=== PATIENT | female | born 1990 | race Caucasian/White ===

== ENCOUNTER 2019-04-24 20:09 | Emergency (ER) | payer OTHER ==
[~2019-04-24] VITALS: Ht 170.2 cm; Wt 136.1 kg
[~2019-04-24 20:09] MED LIST: ABILIFY; ACET500 PO; ARIP10 PO; CIPR500 PO; CRUTCH4 USE; Cipro500 MG PO; FLUC200 PO; FLUT.05NI; Flagyl500 MG PO; METF500C PO; METF850 PO; METR500 PO; METR70GEL VAG; MULVITMINE PO; NITR100CA PO; Norco 5-325 Ta1 EACH PO; ORTHO TRYCYCLINE; PHENA200 PO; PNV PRENATAL P1 EACH PO; PROM25 PO; SERT100; SERT100 PO; SERT50 PO; SULTRIDS PO; TRAZ50; TRAZ50 PO; Verotin-Gr Cap1 EACH; Zofran8 MG PO
[2019-04-24] MEDS ORDERED: CYCL10 PO (21:06)
== END 2019-04-24 21:10 | disposition home or self-care (01) ==
LOC: ER 20:09
DX: M23.92 Unspecified internal derangement of left knee (principal); Z88.1 Allergy status to other antibiotic agents; Z79.84 Long term (current) use of oral hypoglycemic drugs; F17.210 Nicotine dependence, cigarettes, uncomplicated
CPT/HCPCS: 73562-LT; 99283-25

== ENCOUNTER 2019-07-22 16:24 | Emergency (ER) | payer OTHER ==
[~2019-07-22] VITALS: Ht 170.2 cm; Wt 136.1 kg
[~2019-07-22 16:24] MED LIST changes: +CYCL10 PO
[2019-07-22] MEDS ORDERED: LATUDA60 MG PO ×2 (16:30→16:52)
[2019-07-22] MEDS ORDERED: METF500C PO (16:52)
== END 2019-07-22 17:01 | disposition home or self-care (01) ==
LOC: ER 16:24
DX: E11.9 Type 2 diabetes mellitus without complications (principal); Z88.8 Allergy status to other drugs, medicaments and biological substances; Z88.1 Allergy status to other antibiotic agents; Z79.899 Other long term (current) drug therapy; Z79.84 Long term (current) use of oral hypoglycemic drugs; F17.210 Nicotine dependence, cigarettes, uncomplicated
CPT/HCPCS: 99281

== ENCOUNTER 2019-08-03 17:59 | Emergency (ER) | payer OTHER ==
[~2019-08-03] VITALS: Ht 170.2 cm; Wt 136.1 kg
[~2019-08-03 17:59] MED LIST changes: +LATUDA60 MG PO
[2019-08-03] MEDS ORDERED: PRENATAL TABLE1 EAC2 PO (19:42)
== END 2019-08-03 20:26 | disposition home or self-care (01) ==
LOC: ER 17:59
DX: O26.891 Other specified pregnancy related conditions, first trimester (principal); R10.9 Unspecified abdominal pain; O99.331 Smoking (tobacco) complicating pregnancy, first trimester; F17.210 Nicotine dependence, cigarettes, uncomplicated; Z3A.01 Less than 8 weeks gestation of pregnancy
CPT/HCPCS: 36415; 84702; 99283

== ENCOUNTER → 2019-10-29 | Outpatient (CLI) | payer OTHER ==
[~2019-10-29] MED LIST changes: +PRENATAL TABLE1 EAC2 PO
[2019-10-30 14:08] LABS: HPV 16 Negative (Negative); HPV 18 Negative (Negative); HPV OTHER HR TYPES Negative (Negative)
== END | disposition home or self-care (01) ==
LOC: LAB SHORT 15:30 → LAB 15:30
PROVIDERS: Obstetrics & Gynecology
DX: Z12.4 Encounter for screening for malignant neoplasm of cervix (principal)
CPT/HCPCS: 87624; G0123

== ENCOUNTER 2020-03-28 11:59 | Emergency (ER) | payer OTHER ==
[~2020-03-28] VITALS: Ht 170.2 cm; Wt 142.9 kg
[2020-03-28 12:35] LABS: Source, Urine Clean Catch
[2020-03-28 12:41] LABS: Appearance, Urine Clear (Clear); Bilirubin, Urine Neg (Neg); Blood, Urine Neg (Neg); Color, Urine Yellow (P-Yellow); Glucose Qualitative, Urine Neg (Neg); Ketones, Urine Neg (Neg); Leukocyte Esterase, Urine Neg (Neg); Nitrite, Urine Neg (Neg); Protein, Urine Neg (Neg); Specific Gravity, Urine 1.005 (1.003-1.022); Urobilinogen, Urine NORM (Normal)
== END 2020-03-28 15:14 | disposition home or self-care (01) ==
LOC: ER 11:59
PROVIDERS: Emergency Medicine
DX: O41.02X0 Oligohydramnios, second trimester, not applicable or unspecified (principal); J45.909 Unspecified asthma, uncomplicated; F41.0 Panic disorder [episodic paroxysmal anxiety]; F17.210 Nicotine dependence, cigarettes, uncomplicated; Z88.1 Allergy status to other antibiotic agents; Z79.899 Other long term (current) drug therapy; Z79.84 Long term (current) use of oral hypoglycemic drugs; Z3A.18 18 weeks gestation of pregnancy
CPT/HCPCS: 76815; 81003; 99284-25

== ENCOUNTER → 2020-07-27 | Outpatient (CLI) | payer OTHER | END | disposition home or self-care (01) | LOC: LAB SHORT 15:51 → LAB 15:51 | DX: O26.93 Pregnancy related conditions, unspecified, third trimester (principal); Z3A.35 35 weeks gestation of pregnancy | CPT/HCPCS: 87081; 87150 ==

== ENCOUNTER 2020-08-24 06:01 | Inpatient (IN) | payer OTHER ==
[~2020-08-24] VITALS: Ht 170.2 cm; Wt 162.7 kg
[2020-08-24 08:45] LABS: BASOPHILS ABSOLUTE AUTO 0.03 K/mm3 (0.00-0.23); BASOPHILS PERCENT AUTO 0 % (0-2); EOSINOPHILS ABSOLUTE AUTO 0.08 K/mm3 (0.00-0.68); EOSINOPHILS PERCENT AUTO 1 % (0-6); Hemoglobin 11.1 g/dL (11.5-16.0); IMMATURE GRAN ABSOLUTE AUTO 0.07 K/mm3 (0.00-0.10); IMMATURE GRAN PERCENT AUTO 1 % (0-1); LYMPHOCYTES ABSOLUTE AUTO 0.87 K/mm3 (0.84-5.20); LYMPHOCYTES PERCENT AUTO 13 % (21-46); MONOCYTES ABSOLUTE AUTO 0.64 K/mm3 (0.16-1.47); MONOCYTES PERCENT AUTO 9 % (4-13); Mean Corpuscular HGB 29.5 pg (26.0-34.0); Mean Corpuscular HGB Conc 33.6 g/dL (31.5-36.5); Mean Corpuscular Volume 88 fL (80-100); Mean Platelet Volume 9.4 fL (9.1-12.4); NEUTROPHILS ABSOLUTE AUTO 5.26 K/mm3 (1.96-9.15); NEUTROPHILS PERCENT AUTO 76 % (41-73); Platelet Count 247 K/mm3 (150-400); RDW Coefficient Variation 13.5 % (11.7-14.2); RDW Standard Deviation 43.6 fL (35.1-46.3); Red Blood Cell Count 3.76 M/mm3 (3.80-5.20); White Blood Cell Count 6.95 K/mm3 (4.00-11.30)
--- NOTE | 2020-08-25 02:08 | NUR ---
RN ASSESSED PT PERIPHERAL IV IN R AC STARTED BY AN RN FROM PCU. IV PATENT AND RUNNING AT START OF SHIFT. IV STILL PATENT AFTER L&D.
[2020-08-25 05:18] LABS: BASOPHILS ABSOLUTE AUTO 0.02 K/mm3 (0.00-0.23); BASOPHILS PERCENT AUTO 0 % (0-2); EOSINOPHILS PERCENT AUTO 1 % (0-6); Hematocrit 33.1 % (33.0-51.0); Hemoglobin 11.2 g/dL (11.5-16.0); IMMATURE GRAN ABSOLUTE AUTO 0.06 K/mm3 (0.00-0.10); IMMATURE GRAN PERCENT AUTO 1 % (0-1); LYMPHOCYTES ABSOLUTE AUTO 0.89 K/mm3 (0.84-5.20); LYMPHOCYTES PERCENT AUTO 10 % (21-46); MONOCYTES ABSOLUTE AUTO 0.77 K/mm3 (0.16-1.47); MONOCYTES PERCENT AUTO 8 % (4-13); Mean Corpuscular HGB 29.9 pg (26.0-34.0); Mean Corpuscular HGB Conc 33.8 g/dL (31.5-36.5); Mean Corpuscular Volume 88 fL (80-100); Mean Platelet Volume 9.1 fL (9.1-12.4); NEUTROPHILS PERCENT AUTO 80 % (41-73); Platelet Count 229 K/mm3 (150-400); RDW Coefficient Variation 13.6 % (11.7-14.2); Red Blood Cell Count 3.75 M/mm3 (3.80-5.20); White Blood Cell Count 9.34 K/mm3 (4.00-11.30)
== END 2020-08-26 08:00 | disposition home or self-care (01) | DRG 807 ==
LOC: OBS 06:01 → BC 06:10
PROVIDERS: ADMIT Obstetrics & Gynecology
PROC: 10E0XZZ Delivery of Products of Conception, External Approach (ICD-10-PCS; principal; 2020-08-24)
PROC: 3E0R3BZ Introduction of Anesthetic Agent into Spinal Canal, Percutaneous Approach (ICD-10-PCS; 2020-08-24)
PROC: 00HU33Z Insertion of Infusion Device into Spinal Canal, Percutaneous Approach (ICD-10-PCS; 2020-08-24)
DX: O99.214 Obesity complicating childbirth (principal); Z37.0 Single live birth; E66.9 Obesity, unspecified; O99.334 Smoking (tobacco) complicating childbirth; F17.210 Nicotine dependence, cigarettes, uncomplicated; Z20.822 Contact with and (suspected) exposure to COVID-19; Z3A.39 39 weeks gestation of pregnancy
CPT/HCPCS: 36415; 51702; 82947; 85025; 86850; 86900; 86901; A9270; J1885; J2001; J2210; J2405; J2590; J3010; J7120

== ENCOUNTER 2020-10-24 02:07 | Emergency (ER) | payer OTHER ==
[~2020-10-24] VITALS: Ht 170.2 cm; Wt 154.2 kg
== END 2020-10-24 06:14 | disposition home or self-care (01) ==
LOC: ER 02:07
DX: S01.01XA Laceration without foreign body of scalp, initial encounter (principal); F17.210 Nicotine dependence, cigarettes, uncomplicated; Z88.1 Allergy status to other antibiotic agents; W22.8XXA Striking against or struck by other objects, initial encounter
CPT/HCPCS: 12001; 99283-25

== ENCOUNTER → 2021-04-28 | Outpatient (CLI) | payer OTHER | LOC: LAB SHORT 13:10 → LAB 13:10 | DX: N39.0 Urinary tract infection, site not specified (principal); Z88.1 Allergy status to other antibiotic agents | CPT/HCPCS: 87077; 87086; 87186 ==

== ENCOUNTER → 2021-06-02 | Outpatient (CLI) | payer OTHER | LOC: LAB SHORT 13:15 → LAB 13:15 → LAB FUT 06-02 14:20 | DX: R30.9 Painful micturition, unspecified (principal) | CPT/HCPCS: 87086 ==

== ENCOUNTER → 2022-01-24 | Outpatient (CLI) | payer OTHER | END | disposition home or self-care (01) | LOC: LAB 14:00 → LAB SHORT 14:00 | DX: N90.89 Other specified noninflammatory disorders of vulva and perineum (principal); N89.8 Other specified noninflammatory disorders of vagina | CPT/HCPCS: 87070; 87205 ==

== ENCOUNTER → 2022-06-03 | Outpatient (CLI) | payer OTHER | END | disposition home or self-care (01) | LOC: LAB 07:02 → LAB SHORT 07:02 | DX: Z34.82 Encounter for supervision of other normal pregnancy, second trimester (principal) | CPT/HCPCS: 82947; 82951; 82952 ==

== ENCOUNTER → 2022-07-13 | Outpatient (CLI) | payer OTHER | END | disposition home or self-care (01) | LOC: LAB SHORT 15:40 | DX: Z34.83 Encounter for supervision of other normal pregnancy, third trimester (principal); Z3A.36 36 weeks gestation of pregnancy | CPT/HCPCS: 87081; 87150 ==

== ENCOUNTER 2022-08-02 06:14 | Inpatient (IN) | payer OTHER ==
[~2022-08-02] VITALS: Ht 170.2 cm; Wt 170.0 kg
[2022-08-02 08:18] LABS: BASOPHILS ABSOLUTE AUTO 0.04 K/mm3 (0.00-0.23); BASOPHILS PERCENT AUTO 1 % (0-2); EOSINOPHILS ABSOLUTE AUTO 0.07 K/mm3 (0.00-0.68); EOSINOPHILS PERCENT AUTO 1 % (0-6); Hematocrit 39.6 % (33.0-51.0); Hemoglobin 13.6 g/dL (11.5-16.0); IMMATURE GRAN ABSOLUTE AUTO 0.04 K/mm3 (0.00-0.10); IMMATURE GRAN PERCENT AUTO 1 % (0-1); LYMPHOCYTES ABSOLUTE AUTO 1.34 K/mm3 (0.84-5.20); LYMPHOCYTES PERCENT AUTO 17 % (21-46); MONOCYTES ABSOLUTE AUTO 0.59 K/mm3 (0.16-1.47); MONOCYTES PERCENT AUTO 8 % (4-13); Mean Corpuscular HGB 30.4 pg (26.0-34.0); Mean Corpuscular HGB Conc 34.3 g/dL (31.5-36.5); Mean Corpuscular Volume 88 fL (80-100); Mean Platelet Volume 9.3 fL (9.1-12.4); NEUTROPHILS PERCENT AUTO 73 % (41-73); Platelet Count 284 K/mm3 (150-400); RDW Coefficient Variation 13.9 % (11.7-14.2); RDW Standard Deviation 44.8 fL (35.1-46.3); Red Blood Cell Count 4.48 M/mm3 (3.80-5.20); White Blood Cell Count 7.68 K/mm3 (4.00-11.30)
[2022-08-02] MEDS ORDERED: METFORMIN HCL500 M3 (10:24)
[2022-08-02] MEDS ORDERED: LATUDA40 MG PO (10:24)
[2022-08-02] MEDS ORDERED: ALBU90OI6 INH (10:25)
[2022-08-02] MEDS ORDERED: AMPDEX15CR PO (10:25)
[2022-08-03 06:16] LABS: BASOPHILS ABSOLUTE AUTO 0.01 K/mm3 (0.00-0.23); BASOPHILS PERCENT AUTO 0 % (0-2); EOSINOPHILS ABSOLUTE AUTO 0.05 K/mm3 (0.00-0.68); EOSINOPHILS PERCENT AUTO 1 % (0-6); Hematocrit 35.3 % (33.0-51.0); Hemoglobin 12.2 g/dL (11.5-16.0); IMMATURE GRAN ABSOLUTE AUTO 0.07 K/mm3 (0.00-0.10); IMMATURE GRAN PERCENT AUTO 1 % (0-1); LYMPHOCYTES ABSOLUTE AUTO 1.11 K/mm3 (0.84-5.20); LYMPHOCYTES PERCENT AUTO 12 % (21-46); MONOCYTES ABSOLUTE AUTO 0.57 K/mm3 (0.16-1.47); MONOCYTES PERCENT AUTO 6 % (4-13); Mean Corpuscular HGB 30.6 pg (26.0-34.0); Mean Corpuscular HGB Conc 34.6 g/dL (31.5-36.5); Mean Corpuscular Volume 89 fL (80-100); Mean Platelet Volume 9.5 fL (9.1-12.4); NEUTROPHILS ABSOLUTE AUTO 7.36 K/mm3 (1.96-9.15); NEUTROPHILS PERCENT AUTO 80 % (41-73); Platelet Count 248 K/mm3 (150-400); RDW Coefficient Variation 13.8 % (11.7-14.2); RDW Standard Deviation 44.5 fL (35.1-46.3); Red Blood Cell Count 3.99 M/mm3 (3.80-5.20); White Blood Cell Count 9.17 K/mm3 (4.00-11.30)
--- NOTE | 2022-08-03 14:20 | NUR ---
assumed care of pt
--- NOTE | 2022-08-03 20:55 | NUR ---
DISCHARGE TEACHING COMPLETED, PATIENT VERBALIZES UNDERSTANDING AND HAS NO QUESTIONS OR CONCERNS AT THIS TIME. DISCHARGED HOME
== END 2022-08-03 20:50 | disposition home or self-care (01) | DRG 807 ==
LOC: OBS 06:14 → BC 06:32
PROVIDERS: ADMIT Obstetrics & Gynecology
PROC: 10E0XZZ Delivery of Products of Conception, External Approach (ICD-10-PCS; principal; 2022-08-02)
PROC: 0HQ9XZZ Repair Perineum Skin, External Approach (ICD-10-PCS; 2022-08-02)
DX: O24.429 Gestational diabetes mellitus in childbirth, unspecified control (principal); Z37.0 Single live birth; O99.214 Obesity complicating childbirth; E66.01 Morbid (severe) obesity due to excess calories; O99.344 Other mental disorders complicating childbirth; F41.9 Anxiety disorder, unspecified; O70.0 First degree perineal laceration during delivery; Z90.49 Acquired absence of other specified parts of digestive tract; Z87.891 Personal history of nicotine dependence; Z88.8 Allergy status to other drugs, medicaments and biological substances; Z88.1 Allergy status to other antibiotic agents; Z79.899 Other long term (current) drug therapy; Z3A.39 39 weeks gestation of pregnancy; Z79.51 Long term (current) use of inhaled steroids; Z79.84 Long term (current) use of oral hypoglycemic drugs
CPT/HCPCS: 36415; 36416; 82947; 83036; 85025; 86850; 86900; 86901; A9270; J1885; J2590; J3010; J7120